=== PATIENT | female | born 1990 | race Caucasian/White ===

== ENCOUNTER 2021-08-08 08:23 | Emergency (ER) | payer BC, SELFPAY ==
--- NOTE | ~2021-08-08 | CT_ITS ---
EXAMINATION: CT abdomen pelvis w con DATE: 08/08/2021 09:37 INDICATION: Abdominal pain. Bilateral stabbing pelvis pain. TECHNIQUE: Computed tomography (CT) of the abdomen and pelvis was performed with 100 CC Omnipaque 300 intravenous contrast. Automated exposure control and iterative reconstruction technique were employe d. Exam dose: 220.70 mGy-cm total exam DLP. COMPARISON: 11/16/2018 limited abdominal ultrasound examination 11/14/2018 CT abdomen pelvis FINDINGS: The lung bases are clear. Normal heart size. No pericardial or pleural effusion. Numerous gallstones. No abnormal gallbladder wall thickening or pericholecystic fluid or fat strandin g is noted. Normal caliber of the bile ducts. No hepatic, splenic, pancreatic, and adrenal space-occupying mass lesion. No bile duct or pancreatic duct dilatation. There are couple of right renal cysts measuring 5 mm and 6 mm approximately. No other renal mass lesion is noted. No urinary tract calculus or hydroureteronephrosis. Normal caliber of the abdominal aorta. No intraperitoneal or retroperitoneal or pelvic mass lesion or adenopathy or ascites. Peripherally enhancing 1.3 x 2.3 cm left ovarian cyst. Retroverted anteflexed uterus. The urinary bladder is unremarkable. No bowel obstruction, bowel wall thickening, pneumatosis or intraperitoneal free air. Status post appendectomy. Included skeletal structures are unremarkable. IMPRESSION: Cholelithiasis Status post appendectomy 5 and 6 mm right renal cysts Peripherally enhancing 1.3 x 2.3 cm left ovarian cyst Retroverted anteflexed uterus Reviewed, dictated and finalized at [facility]. Reviewed, dictated and finalized at [facility].
--- NOTE | ~2021-08-08 | US_ITS ---
US pelvic complete w TV DATE: 08/08/2021 11:18 INDICATION: Pelvic pain for 2 weeks TECHNIQUE: Real-time imaging via transabdominal and transvaginal approaches COMPARISON: 08/08/2021 CT abdomen pelvis FINDINGS: Retroverted anteflexed uterus. The uterus measures approximately 6.7 cm height, 4 cm jonathon posterior dimension. The central endometrial echo complex measures approximately 10 mm AP dimension. Small free fluid collection in the posterior cul-de-sac. Bilateral ovarian follicles are noted. There is blood flow to both ovaries. 1.5 cm complex lesion of the right ovary, likely an involuting cyst. No pelvic mass is noted otherwise. IMPRESSION: Bilateral ovarian cysts including probable involuting right 1.5 cm ovarian cyst Small free fluid collection in the cul-de-sac Retroverted anteflexed normal size uterus Reviewed, dictated and finalized at [facility]. Reviewed, dictated and finalized at [facility].
[2021-08-08 08:23] VITALS: BP 146/86; PULSE 77; RESP 18; TEMP 36.4; O2SAT 100
[2021-08-08 08:52] LABS: Basophils Percent Auto 0.3 % (0.2-1.2); Eosinophils Absolute Auto 0.1 K/mm3 (0-0.3); Hematocrit 38.5 % (37.0-47.0); Hemoglobin 12.8 g/dL (12.0-15.0); Immature Granulocyte Absolute 0.02 K/mm3 (0.00-0.031); Immature Granulocyte Percent A 0.3 % (0-0.5); Lymphocytes Absolute Auto 1.93 K/mm3 (0.9-3.2); Lymphocytes Percent Auto 30.3 % (18.3-44.2); Mean Corpuscular HGB Conc 33.2 g/dl (32-36); Mean Corpuscular Hemoglobin 30.6 pg (26-34); Mean Corpuscular Volume 92.1 fl (80-100); Mean Platelet Volume 10.6 fl (7.4-10.4); Monocytes Absolute Auto 0.4 K/mm3 (0.1-0.6); Monocytes Percent Auto 6.3 % (2.6-8.5); Neutrophils Absolute Auto 3.9 K/mm3 (1.3-6.7); Neutrophils Percent Auto 60.8 % (45.5-73.1); Platelet Count Result 326 k/mm3 (150-375); Red Blood Count 4.18 M/mm3 (4.2-5.4); Red Cell Distribution Width 14.1 % (11.5-14.5); White Blood Count 6.4 K/mm3 (4.5-10.0)
[2021-08-08 08:58] LABS: Appearance Urine Clear (Clear); Bilirubin Urine Negative (Negative); Blood Urine Negative (Negative); Color Urine Yellow (Yellow); Glucose Urine UA Negative (Negative); Ketones Urine Negative (Negative); Leukocyte Esterase Ur Trace LEU/UL (Negative); Nitrate Urine Negative (Negative); Protein Urine Negative (Negative); Urobilinogen Urine 0.2 mg/dL (<2.0); pH Urine 6.5 (5.0-9.0)
[2021-08-08 09:02] LABS: Add Urine Microscopic? YES
[2021-08-08 09:04] LABS: Alanine Aminotransferase 20 U/L (6-35); Albumin Level 4.8 g/dL (3.5-5.1); Alkaline Phosphatase 51 U/L (38-126); Anion Gap 10 mmol/L (8-16); Aspartate Amino Transferase 32 U/L (14-36); Bilirubin,Total 0.6 mg/dL (0.2-1.3); Blood Urea Nitrogen 12 mg/dL (7-17); Calcium 9.1 mg/dL (8.4-10.2); Carbon Dioxide 22 mmol/L (22-30); Chloride 107 mmol/L (98-107); Estimated CRCL calculation 85 ml/min; Estimated Glomerular Filt Rate > 60; Glucose 99 mg/dL (65-110); Lipase 49 U/L (23-300); Potassium 4.4 mmol/L (3.4-5.0); Sodium 139 mmol/L (137-145)
[2021-08-08] MEDS: MORPHINE SULFATE (*CRX) 4 MG/ML INJ IV PUSH (09:05)
[2021-08-08 09:09] LABS: Bacteria Urine Trace /hpf; RBC Urine 0-2 /hpf (0-2); Squamous Epithelial Cell Urine Moderate /hpf (Few); WBC Urine 0-3 /hpf
--- NOTE | 2021-08-08 10:12 | PC.NURSE ---
pt in ultrasound at this time.
[2021-08-08 12:28] VITALS: BP 133/83; PULSE 64; RESP 17; O2SAT 100
--- NOTE | 2021-08-08 12:39 | ED.FEMALEGU ---
HPI - Female Genitourinary General Chief complaint: Urogenital-Female Stated complaint: pelvic pain Time Seen by Provider: 08/08/21 08:31 History of Present Illness HPI Narrative: Patient is a 30-year-old female who presents to the ER with left lower quadrant abdominal pain. Sudden onset this morning. Sharp and nonradiating. No fevers or chills or sweats. No urinary frequency urgency or dysuria. Denies vaginal bleeding or vaginal discharge. Patient does not believe her self to be at risk for STD. No alleviating factors. Worse with movement. Related Data Allergies Allergy/AdvReac Type Severity Reaction Status Date / Time Sulfa (Sulfonamide Allergy Unknown Unknown Verified 08/08/21 08:44 Antibiotics) Review of Systems Review of Systems: All systems reviewed & are unremarkable except as noted in HPI and below Constitutional: Constitutional: Denies chills and Denies fatigue ENT: Denies nasal congestion and Denies sore throat Cardiovascular: Cardiovascular: Denies chest pain and Denies radiating jaw, neck or arm pain Gastrointestinal: Gastrointestinal: Reports abdominal pain, Denies constipation, Denies diarrhea, Denies nausea and Denies vomiting Genitourinary: Genitourinary: Denies abnormal vaginal bleeding, Denies nocturia, Denies dysuria, Reports pelvic pain and Denies vaginal discharge PMFSH Past Medical History Medical History (Updated 08/08/21 @ 12:46 by Javier Richards MD) DVT (deep venous thrombosis) Liver thrombus Surgical History Surgical History (Updated 08/08/21 @ 12:44 by Javier Richards MD) History of appendectomy History of tonsillectomy Social History Social History (Updated 08/08/21 @ 12:45 by Javier Richards MD) Smoking status: Never smoker Exam Narrative: GENERAL: Well-appearing, well-nourished, and in no acute distress. HEAD: Normocephalic, atraumatic. EYES: PERRL and EOMI. CHEST: Clear to auscultation. No respiratory distress. HEART: Regular rate and rhythm. Normal peripheral pulses. ABDOMEN: Soft, and palpation left lower quadrant with guarding, mild epigastric tenderness, nondistended, normal active bowel sounds. EXTREMITIES: Normal range of motion. No edema. SKIN: Warm, dry, no rash. NEURO: Alert and oriented x3. PSYCH: Normal mood and affect. Course Vital Signs Vital signs: Vital Signs Temperature 97.6 F 08/08/21 08:23 Pulse Rate 77 08/08/21 08:23 Respiratory Rate 18 08/08/21 08:23 Blood Pressure 146/86 H 08/08/21 08:23 Pulse Oximetry 100 08/08/21 08:23 Temperature 97.6 F 08/08/21 08:23 Pulse Rate 64 08/08/21 12:28 Respiratory Rate 17 08/08/21 12:28 Blood Pressure 133/83 08/08/21 12:28 Pulse Oximetry 100 08/08/21 12:28 MDM - Female Genitourinary Lab Data Result diagrams: 08/08/21 08:45 08/08/21 08:45 Labs: Lab Results 08/08/21 08/08/21 08/08/21 Range/Units 08:42 08:45 08:45 WBC 6.4 (4.5-10.0) K/mm3 RBC 4.18 L (4.2-5.4) M/mm3 Hgb 12.8 (12.0-15.0) g/dL Hct 38.5 (37.0-47.0) % MCV 92.1 (80-100) fl MCH 30.6 (26-34) pg MCHC 33.2 (32-36) g/dl RDW 14.1 (11.5-14.5) % Plt Count 326 (150-375) k/mm3 MPV 10.6 H (7.4-10.4) fl Immature Gran % (Auto) 0.3 (0-0.5) % Neut % (Auto) 60.8 (45.5-73.1) % Lymph % (Auto) 30.3 (18.3-44.2) % Camp % (Auto) 6.3 (2.6-8.5) % Eos % (Auto) 2.0 (0-4.4) % Baso % (Auto) 0.3 (0.2-1.2) % Lymph # (Auto) 1.93 (0.9-3.2) K/mm3 Camp # (Auto) 0.4 (0.1-0.6) K/mm3 Eos # (Auto) 0.1 (0-0.3) K/mm3 Baso # (Auto) 0.0 (0.0-0.1) K/mm3 Abs Immat Gran (auto) 0.02 (0.00-0.031) K/mm3 Absolute Neuts (auto) 3.9 (1.3-6.7) K/mm3 Absolute Nucleated RBC 0.0 (0.0-0.012) K/mm3 Nucleated RBC % 0.0 (0.0-0.2) % Sodium 139 (137-145) mmol/L Potassium 4.4 (3.4-5.0) mmol/L Chloride 107 (98-107) mmol/L Carbon Dioxide 22 (22-30) mmol/L Anion Gap 10
[2021-08-08 13:25] VITALS: BP 137/80; PULSE 70; RESP 15; O2SAT 100
== END 2021-08-08 13:26 | disposition home or self-care (01) ==
PROVIDERS: Emergency Provider Emergency Medicine; PCP Family Medicine
DX: N83.202 Unspecified ovarian cyst, left side (principal); N28.1 Cyst of kidney, acquired; N85.4 Malposition of uterus; Z86.718 Personal history of other venous thrombosis and embolism
CPT/HCPCS: 36415; 74177; 76830; 76856; 80053; 81001; 81025; 83690; 85025; 96374; 99284; J2270; Q9967